=== PATIENT | female | born 1990 | race Caucasian/White ===

== ENCOUNTER 2018-12-22 11:08 | Emergency (ER) | payer MEDICAID ==
[2018-12-22 11:32] VITALS: BP 139/87; PULSE 98
[2018-12-22] MEDS ORDERED: oxyCODONE 5 MG Tab PO ONE ×2 (12:36→16:09)
--- NOTE | 2018-12-22 13:10 | EDM.PDOC ---
ED HPI GENERAL MEDICAL PROBLEM - General Chief Complaint: Abdominal Pain Stated Complaint: right lower abd pain Time Seen by Provider: 12/22/18 12:25 Source of Information: Reports: Patient History Limitations: Reports: No Limitations - History of Present Illness INITIAL COMMENTS - FREE TEXT/NARRATIVE: 28-year-old with history of ovarian cysts present with concerns of right-sided pelvic pain. she was getting out of bed this morning when she had the onset of severe, sharp right-sided pelvic pain. It is worse with walking and movement. No associated nausea or vomiting. No fevers. No diarrhea. No vaginal discharge. She reports that this feels similar to when she's had ruptured ovarian cysts in the past. She does have her appendix. right side Pain Score (Numeric/FACES): 5 - Related Data Allergies Allergy/AdvReac Type Severity Reaction Status Date / Time citalopram Allergy Hives Verified 12/22/18 11:32 hydrocodone bitartrate Allergy Rash Verified 12/22/18 11:32 [From Vicodin] Home Meds: Home Meds Albuterol [Proventil HFA] 200 puff INH Q4H PRN 10 Days #1 inhaler 10/12/18 [Rx] Letrozole 2.5 mg PO DAILY 12/22/18 [History] Norethindrone [Aygestin] 5 mg PO DAILY 12/22/18 [History] Past Medical History - Past Health History Medical/Surgical History: Denies Medical/Surgical History Respiratory History: Reports: Other (See Below) Other Respiratory History: dry cough past few months 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: 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 Other PNEUMATIC TOOL OPERATOR History: laparoscopy for endometriosis Musculoskeletal History: Reports: Fracture Other Musculoskeletal History: right hand Neurological History: Reports: Migraines Psychiatric History: Reports: Anxiety, Bipolar, Depression - Past Surgical History Other Female Surgeries/Procedures: endometrosis Social & Family History - Tobacco Use Smoking Status *Q: Current Every Day Smoker Years of Tobacco use: 1 Packs/Tins Daily: 0.5 - Caffeine Use Caffeine Use: Reports: Energy Drinks, Soda - Alcohol Use Days Per Week of Alcohol Use: 2 Number of Drinks Per Day: 4 Total Drinks Per Week: 8 - Recreational Drug Use Recreational Drug Use: No ED ROS GENERAL - Review of Systems Review Of Systems: See Below Constitutional: Reports: No Symptoms HEENT: Reports: No Symptoms Respiratory: Reports: No Symptoms Cardiovascular: Reports: No Symptoms Endocrine: Reports: No Symptoms GI/Abdominal: Reports: Abdominal Pain : Reports: No Symptoms Musculoskeletal: Reports: No Symptoms Skin: Reports: No Symptoms Neurological: Reports: No Symptoms Psychiatric: Reports: No Symptoms Hematologic/Lymphatic: Reports: No Symptoms Immunologic: Reports: No Symptoms ED EXAM, GI/ABD - Physical Exam Exam: See Below Exam Limited By: No Limitations General Appearance: Alert, No Apparent Distress Ears: Normal External Exam Nose: Normal Inspection Throat/Mouth: Normal Inspection Head: Atraumatic, Normocephalic Respiratory/Chest: No Respiratory Distress, Lungs Clear Cardiovascular: Regular Rate, Rhythm GI/Abdominal Exam: Tender (right sided pelvic tenderness to palpation). No: Guarding, Rigid, Rebound Rectal (Female) Exam: Normal Exam Back Exam: Normal Inspection Extremities: Normal Inspection Neurological: Alert, Oriented Psychiatric: Normal Affect, Normal Mood Skin Exam: Warm, Dry Course - Vital Signs Last Recorded V/S: Last Vital Signs Temp 36.1 C 12/22/18 11:31 Pulse 98 12/22/18 11:31 Resp 20 12/22/18 11:31 BP 139/87 12/22/18 11:31 Pulse Ox 96 12/22/18 11:31 - Orders/Labs/Meds Orders: Active Orders 24 hr Category Date Time Status Iopamidol [Isovue-300 (61%)] Med 12/22/18 14:00 Active 100 ml IV . DIRECTED PRN Sodium Chloride 0.9% [Normal Saline] 100 ml Med 12/22/18 14:00 Active IV ASDIRECTED Medication Orders Sodium Chloride (Normal Saline) 100 mls @ 3 mls/sec IV ASDIRECTED EDWINA Stop: 12/22/18 17:00 Last Admin: 12/22/18 14:46 Dose: 3 mls/sec Iopamidol (Isovue-300 (61%)) 100 ml IV . DIRECTED PRN PRN Reason: RADIOLOGY EXAM Stop: 12/23/18 14:01 Last Admin: 12/22/18 14:46 Dose: 100 ml Labs: Laboratory Tests 12/22/18 12/22/18 12/22/18 Range/Units 11:46 12:35 13:50 WBC 10.8 (4.5-11.0) K/uL RBC 4.42 (3.30-5.50) M/uL Hgb 13.8 (12.0-15.0) g/dL Hct 41.6 (36.0-48.0) % MCV 94 (80-98) fL MCH 31 (27-31) pg MCHC 33 (32-36) % Plt Count 315 (150-400) K/uL Sodium (140-148) mmol/L Potassium (3.6-5.2) mmol/L Chloride (100-108) mmol/L Carbon Dioxide (21-32) mmol/L Anion Gap (5.0-14.0) mmol/L BUN (7-18) mg/dL Creatinine (0.6-1.0) mg/dL Est Cr Clr Drug Dosing mL/min Estimated GFR (MDRD) (>60) Glucose (74-106) mg/dL Calcium (8.5-10.1) mg/dL Total Bilirubin (0.2-1.0) mg/dL AST (15-37) U/L ALT (12-78) U/L Alkaline Phosphatase (46-116) U/L Total Protein (6.4-8.2) g/dL Albumin (3.4-5.0) g/dL Globulin (2.3-3.5) g/dL Albumin/Globulin Ratio (1.2-2.2) Lipase (73-393) U/L Urine Color Yellow (YELLOW) Urine Appearance Slightly cloudy A (CLEAR) Urine pH 6.0 (5.0-8.0) Ur Specific [place] 1.025 (1.008-1.030) Urine Protein Negative (NEGATIVE) mg/dL Urine Glucose (UA) Negative (NEGATIVE) mg/dL Urine Ketones Negative (NEGATIVE) mg/dL Urine Occult Blood Negative (NEGATIVE) Urine Nitrite Negative (NEGATIVE) Urine Bilirubin Negative (NEGATIVE) Urine Urobilinogen 0.2 (0.2-1.0) EU/dL Ur Leukocyte Esterase Negative (NEGATIVE) Urine RBC Not seen (0-5) Urine WBC Not seen (0-5) Ur Epithelial Cells Rare Amorphous Sediment Rare Urine Bacteria Not seen Urine Mucus Moderate Urine HCG, Qual Negative 12/22/18 12/22/18 Range/Units 13:50 14:05 WBC (4.5-11.0) K/uL RBC (3.30-5.50) M/uL Hgb (12.0-15.0) g/dL Hct (36.0-48.0) % MCV (80-98) fL MCH (27-31) pg MCHC (32-36) % Plt Count (150-400) K/uL Sodium 139 L (140-148) mmol/L Potassium 3.9 (3.6-5.2) mmol/L Chloride 103 (100-108) mmol/L Carbon Dioxide 28 (21-32) mmol/L Anion Gap 11.9 (5.0-14.0) mmol/L BUN 13 (7-18) mg/dL Creatinine 0.7 (0.6-1.0) mg/dL Est Cr Clr Drug Dosing 93.79 mL/min Estimated GFR (MDRD) > 60 (>60) Glucose 75 (74-106) mg/dL Calcium 9.0 (8.5-10.1) mg/dL Total Bilirubin 0.2 (0.2-1.0) mg/dL AST 15 (15-37) U/L ALT 24 (12-78) U/L Alkaline Phosphatase 38 L (46-116) U/L Total Protein 6.9 (6.4-8.2) g/dL Albumin 3.7 (3.4-5.0) g/dL Globulin 3.2 (2.3-3.5) g/dL Albumin/Globulin Ratio 1.2 (1.2-2.2) Lipase 287 (73-393) U/L Urine Color (YELLOW) Urine Appearance (CLEAR) Urine pH (5.0-8.0) Ur Specific [place] (1.008-1.030) Urine Protein (NEGATIVE) mg/dL Urine Glucose (UA) (NEGATIVE) mg/dL Urine Ketones (NEGATIVE) mg/dL Urine Occult Blood (NEGATIVE) Urine Nitrite (NEGATIVE) Urine Bilirubin (NEGATIVE) Urine Urobilinogen (0.2-1.0) EU/dL Ur Leukocyte Esterase (NEGATIVE) Urine RBC (0-5) Urine WBC (0-5) Ur Epithelial Cells Amorphous Sediment Urine Bacteria Urine Mucus Urine HCG, Qual Meds: Medications Generic Name Dose Route Start Last Admin Trade Name Freq PRN Reason Stop Dose Admin Sodium Chloride 100 mls @ 3 mls/sec 12/22/18 14:00 12/22/18 14:46 Normal Saline IV 12/22/18 17:00 3 mls/sec ASDIRECTED EDWINA Administration Iopamidol 100 ml 12/22/18 14:00 12/22/18 14:46 Isovue-300 (61%) IV 12/23/18 14:01 100 ml . DIRECTED PRN Administration RADIOLOGY EXAM Discontinued Medications Generic Name Dose Route Start Last Admin Trade Name Nay PRN Reason Stop Dose Admin Oxycodone HCl 5 mg 12/22/18 12:36 12/22/18 12:42 Oxycodone PO 12/22/18 12:37 5 mg ONETIME ONE Administration Sodium Chloride 10 ml 12/22/18 14:00 12/22/18 14:02 Normal Saline FLUSH 12/22/18 14:01 10 ml ONETIME ONE Administration - Re-Assessments/Exams Free Text/Narrative Re-Assessment/Exam: 48-year-old with history of ovarian cysts presents with concerns of sharp right- sided pelvic pain that started abruptly this morning. Reports feels similar to prior ovarian cysts. On exam she has normal vital signs. She does have right-sided pelvic tenderness. We will get a pelvic ultrasound to further evaluate for cyst rupture, rule out torsion. If unremarkable will expand differential as needed. 12/22/18 13:09 Free Text/Narrative Re-Assessment/Exam: US report by tech as unremarkable. Patient with continued pain. Obtained labs - unremarkable Proceeded with CT abd/pelvis: show pelvic free fluid and findings consistent with likely ruptured cyst. Also possible leiomyoma - call follow this up with PCP Safe for discharge - NSAIDS for pain 12/22/18 16:02 Departure - Departure Time of Disposition: 16:05 Disposition: Home, Self-Care 01 Clinical Impression: Ruptured ovarian cyst - Discharge Information *PRESCRIPTION DRUG MONITORING PROGRAM REVIEWED*: No *COPY OF PRESCRIPTION DRUG MONITORING REPORT IN PATIENT ESTUARDO: No Referrals: Ophelia Aguilar CNM [Primary Care Provider] - Forms: ED Department Discharge Additional Instructions: You CT findings are consistent with likely ruptured ovarian cyst They also showed possible fibroids - please follow up with you PCP regarding this Take tylenol and ibuprofen for pain. - My Orders Last 24 Hours: My Active Orders 12/22/18 14:00 Iopamidol [Isovue-300 (61%)] 100 ml IV . DIRECTED PRN Sodium Chloride 0.9% [Normal Saline] 100 ml IV ASDIRECTED - Assessment/Plan Last 24 Hours: My Active Orders 12/22/18 14:00 Iopamidol [Isovue-300 (61%)] 100 ml IV . DIRECTED PRN Sodium Chloride 0.9% [Normal Saline] 100 ml IV ASDIRECTED
[2018-12-22] MEDS ORDERED: Sodium Chloride 0.9% 100 ML IV SCH (14:00)
[2018-12-22] MEDS ORDERED: Sodium Chloride 0.9% 10 ML SDV FLUSH ONE (14:00)
[2018-12-22] MEDS ORDERED: Iopamidol 612 MG/ML 100 ML Bottle IV PRN (14:00)
--- NOTE | 2018-12-22 16:00 | CT ---
Abdomen Pelvis w Cont: 12/22/2018 2:37 PM INDICATION: RLQ abdominal pain COMPARISON: CT of the abdomen and pelvis performed on 01/08/2014, contemporaneous pelvic ultrasound. TECHNIQUE: Axial images were obtained through the abdomen and pelvis after administration of intravenous contrast. Coronal and sagittal reformats were obtained and reviewed. FINDINGS: Lower thorax: Visualized portions are within normal limits. Liver: Unremarkable. Gallbladder/biliary: Unremarkable. Spleen: Unremarkable. Adrenal glands: Unremarkable. Kidneys: Unremarkable. Stomach: Unremarkable. Duodenum and small bowel: Unremarkable. No findings to suggest obstruction.. Colon: Unremarkable. Appendix: Unremarkable. Pancreas: Unremarkable. Vascular structures: Unremarkable.. Peritoneum: Small amount of free pelvic fluid. No pneumoperitoneum. No pathologically enlarged intra-abdominal lymph nodes. Retroperitoneum: Unremarkable. No pathologically enlarged retroperitoneal lymph nodes. Reproductive structures: Heterogeneous appearance of the uterus, particularly involving the left lateral aspect of the fundus and body of the uterus which relate to leiomyomatous change. Involuting corpus luteum cyst is present in the right ovary. Left ovarian follicles are present. Small amount of free fluid extends into the left adnexal region and posterior cul-de-sac. Endometrial stripe appears somewhat thickened. Urinary bladder: Unremarkable but incompletely distended. Pelvic sidewall: Unremarkable. No lymphadenopathy. Inguinal regions: Unremarkable. Osseous structures: Unremarkable. No acute osseous abnormalities or aggressive osseous lesions. IMPRESSION: 1. Heterogeneous appearance of the uterus is nonspecific may relate to leiomyomatous change or focal adenomyosis. This could be further assessed with pelvic MRI if indicated. 2. Involuting right-sided corpus luteum cyst and left-sided ovarian follicle/functional ovarian cyst. Small amount of free pelvic fluid likely relates to recent cyst rupture. 3. Other ancillary findings as detailed above.
--- NOTE | 2018-12-22 16:04 | US ---
VL Duplex Abd Pel Ret Ltd, Pelvis Non OB Comp: 12/22/2018 1:24 PM INDICATION: Right-sided pelvic pain COMPARISON: Ultrasound performed on 06/13/2015, contemporaneous pelvic CT. TECHNIQUE: Grayscale and Doppler sonography of the pelvis was performed utilizing both transabdominal and transvaginal approach. FINDINGS: Uterus measures 7.7 x 4.5 x 3.6 cm. Endometrial stripe measures 6 mm. Mildly heterogeneous uterine echotexture without discrete mass. The right ovary contains a small involuting corpus luteum cyst. Right ovary measures 3.4 x 2.4 x 2.0 cm. The left ovary measures 2.7 x 1.7 x 2.0 cm and contains several small follicles measuring up to 1.1 cm. Small amount of free pelvic fluid is seen in the posterior cul-de-sac and left adnexal region. Vascular flow to both ovaries is identified on Doppler analysis. IMPRESSION: 1. Mildly heterogeneous uterine echotexture is nonspecific but can be seen in the setting of adenomyosis. 2. Small right-sided corpus luteum cyst. 3. Small left sided ovarian follicles. 4. Small amount of free pelvic fluid, nonspecific but likely physiologic.
== END 2018-12-22 16:22 | disposition home or self-care (01) ==
LOC: JP.ED 11:08
DX: N83.201 Unspecified ovarian cyst, right side (principal); F31.9 Bipolar disorder, unspecified; F41.9 Anxiety disorder, unspecified; F17.210 Nicotine dependence, cigarettes, uncomplicated; Z88.8 Allergy status to other drugs, medicaments and biological substances; Z79.899 Other long term (current) drug therapy
CPT/HCPCS: 36415; 74177; 76856; 80053; 81001; 81025; 83690; 85027; 93976; 99284; A9270; J7030; Q9967

== ENCOUNTER 2019-03-30 11:43 | Emergency (ER) | payer MEDICAID, OTHER ==
[2019-03-30 11:55] VITALS: BP 138/95; PULSE 83
[2019-03-30] MEDS ORDERED: Acetaminophen/HYDROcodone 325-5 MG Tab PO ONE (12:20)
--- NOTE | 2019-03-30 12:24 | EDM.PDOC ---
ED HPI GENERAL MEDICAL PROBLEM - General Chief Complaint: Headache Stated Complaint: FALL, HIT HEAD AND ELBOW Time Seen by Provider: 03/30/19 12:17 Source of Information: Reports: Patient, RN Notes Reviewed History Limitations: Reports: No Limitations - History of Present Illness INITIAL COMMENTS - FREE TEXT/NARRATIVE: 29-year-old female presents emergency department today complaint of left elbow pain as well as head injury, she was on her way to work when she slipped on the ice landed on her elbow also hit her head she had 1 episode of emesis headache has improved but the pain in her elbow persists. States she does have a history of hydrocodone allergy which causes a rash however she is able to take 1 or 2 tablets without any difficulty Left Elbow Pain Score (Numeric/FACES): 7 Head Pain Score (Numeric/FACES): 5 - Related Data Allergies Allergy/AdvReac Type Severity Reaction Status Date / Time citalopram Allergy Hives Verified 03/30/19 11:56 hydrocodone bitartrate Allergy Rash Verified 03/30/19 11:56 [From Vicodin] Home Meds: Home Meds NK [No Known Home Meds] 03/30/19 [History] Past Medical History Respiratory History: Reports: Other (See Below) Other Respiratory History: dry cough past few months 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: 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 WEATHERIZATION DIRECTOR History: laparoscopy for endometriosis Musculoskeletal History: Reports: Fracture Other Musculoskeletal History: right hand Neurological History: Reports: Migraines Psychiatric History: Reports: Anxiety, Bipolar, Depression - Past Surgical History Other Female Surgeries/Procedures: endometrosis Social & Family History - Tobacco Use Smoking Status *Q: Current Every Day Smoker Years of Tobacco use: 2 Packs/Tins Daily: 0.5 - Caffeine Use Caffeine Use: Reports: Coffee - Recreational Drug Use Recreational Drug Use: No Review of Systems - Review of Systems Review Of Systems: See Below Constitutional: Reports: No Symptoms Eyes: Reports: No Symptoms GI/Abdominal: Reports: Nausea Musculoskeletal: Reports: Arm Pain Skin: Reports: No Symptoms Neurological: Reports: No Symptoms ED EXAM, GENERAL - Physical Exam Exam: See Below Free Text/Narrative:: Examination of the elbow she is tender to palpitation along the lateral olecranon, I do not appreciate any erythema there is no edema there is no tenderness at the wrist no tenderness at the shoulder full range of motion of all digits sensation is intact and radial pulses +2 Exam Limited By: No Limitations General Appearance: Alert, WD/WN, No Apparent Distress Eye Exam: Bilateral Eye: EOMI, Normal Inspection, PERRL Ears: Normal External Exam, Normal Canal, Hearing Grossly Normal, Normal TMs Nose: Normal Inspection, Normal Mucosa, No Blood Throat/Mouth: Normal Inspection Head: Atraumatic, Normocephalic Neck: Normal Inspection, Supple, Full Range of Motion, Tender Lateral. No: Tender Midline Respiratory/Chest: No Respiratory Distress Course - Vital Signs Last Recorded V/S: Last Vital Signs Temp 96.5 F L 03/30/19 11:52 Pulse 83 03/30/19 11:52 Resp 16 03/30/19 11:52 BP 138/95 H 03/30/19 11:52 Pulse Ox - Orders/Labs/Meds Meds: Medications Discontinued Medications Generic Name Dose Route Start Last Admin Trade Name Freq PRN Reason Stop Dose Admin Hydrocodone Bitart/Acetaminophen 1 tab 03/30/19 12:20 03/30/19 12:28 [place] 325-5 Mg PO 03/30/19 12:21 1 tab ONETIME ONE Administration Departure - Departure Time of Disposition: 13:42 Disposition: Home, Self-Care 01 Condition: Fair Clinical Impression: Left elbow contusion Qualifiers: Encounter type: initial encounter Qualified Code(s): S50.02XA - Contusion of left elbow, initial encounter Head injury Qualifiers: Encounter type: initial encounter Qualified Code(s): S09.90XA - Unspecified injury of head, initial encounter - Discharge Information Instructions: Head Injury, Adult, [id number], Contusion, [id number] Referrals: Ophelia Aguilar CNM [Primary Care Provider] - Forms: ED Department Discharge Additional Instructions: Use ibuprofen for baseline pain control, use hydrocodone for breakthrough pain, please followup with your primary care provider in 3-5 days if not better, please call return to the emergency department with worsening of symptoms. Sepsis Event Note - Evaluation Sepsis Screening Result: No Definite Risk - Focused Exam Vital Signs: Vital Signs Temp Pulse Resp BP 03/30/19 11:52 96.5 F L 83 16 138/95 H Date Exam was Performed: 03/30/19 Time Exam was Performed: 13:41 - Assessment/Plan Plan: Assessment Acuity = acute Site and laterality = left elbow contusion with head injury Etiology = secondary to fall on ice Manifestations = none Location of injury = Home Lab values = elbow x-ray reveals no fracture Plan She had good relief with hydrocodone provided in the emergency department, prescription for written for hydrocodone 5/325 1 tab p.o. 3 times daily PRN total #4 she will use ibuprofen for baseline pain control follow-up primary care 3 to 5 days if not better This note was dictated using [employer] voice recognition software please call with any questions on syntax or grammar.
--- NOTE | 2019-03-30 13:38 | CR ---
Elbow Min 3V Lt CLINICAL HISTORY: Pain, fall FINDINGS: No acute fracture or dislocation is noted. The fat pads are in normal position. Impression: Negative
== END 2019-03-30 13:50 | disposition home or self-care (01) ==
LOC: JP.ED 11:43
DX: S09.90XA Unspecified injury of head, initial encounter (principal); S50.02XA Contusion of left elbow, initial encounter; F17.210 Nicotine dependence, cigarettes, uncomplicated; Z88.8 Allergy status to other drugs, medicaments and biological substances; W00.0XXA Fall on same level due to ice and snow, initial encounter
CPT/HCPCS: 73080; 99283; A9270

== ENCOUNTER 2019-05-22 15:27 | Emergency (ER) | payer MEDICAID, OTHER ==
[2019-05-22 15:46] VITALS: BP 149/116; PULSE 109
--- NOTE | 2019-05-22 16:14 | EDM.PDOC ---
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 Has had cramping that she has been treating with ibuprofen for the past couple of weeks. No dysuria or hx of UTI's. Has not been to the clinic for this . Has been before, but does not have living children. Does not know her blood type. No vaginal bleeding. No lateral pelvic pain. PHx of endometriosis. Did not try to be seen at the clinic. 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 - Related Data Allergies Allergy/AdvReac Type Severity Reaction Status Date / Time citalopram Allergy Hives Verified 05/22/19 15:45 hydrocodone bitartrate Allergy Rash Verified 05/22/19 15:45 [From Vicodin] Home Meds: Home Meds NK [No Known Home Meds] 03/30/19 [History] Past Medical History Respiratory History: Reports: Other (See Below) Other Respiratory History: dry cough past few months 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: 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 Other PROFESSIONAL ARCHITECT History: laparoscopy for endometriosis Musculoskeletal History: Reports: Fracture Other Musculoskeletal History: right hand Neurological History: Reports: Migraines Psychiatric History: Reports: Anxiety, Bipolar, Depression - Past Surgical History Other Female Surgeries/Procedures: endometrosis Social & Family History - Tobacco Use Smoking Status *Q: Current Every Day Smoker Years of Tobacco use: 1 Packs/Tins Daily: 0.2 - Caffeine Use Caffeine Use: Reports: Coffee ED ROS GENERAL - Review of Systems Review Of Systems: See Below Constitutional: Reports: No Symptoms HEENT: Reports: No Symptoms Respiratory: Reports: No Symptoms Cardiovascular: Reports: No Symptoms Endocrine: Reports: No Symptoms GI/Abdominal: Reports: No Symptoms : Reports: Irregular Menses (missed menses), Pain (cramping), Other (uterine cramping). Denies: Dysuria, Flank Pain, Hematuria, Urinary Retention Musculoskeletal: Reports: No Symptoms Skin: Reports: No Symptoms ED EXAM - Physical Exam Exam: See Below Exam Limited By: No Limitations General Appearance: Alert, WD/WN, No Apparent Distress Respiratory/Chest: No Respiratory Distress Cardiovascular: Regular Rate, Rhythm, No Edema GI/Abdominal Exam: Normal Bowel Sounds, Soft, No Distention, Tender (mild uterine tenderness without adnexal tenderness. ). No: Non-Tender, Distended, Guarding, Rigid, Rebound Extremities: Normal Inspection Neurological: Alert, Oriented, CN II-XII Intact, Normal Cognition, No Motor/ Sensory Deficits Psychiatric: Normal Affect, Normal Mood Skin Exam: Warm, Dry, Intact, Normal Color, No Rash Course - Vital Signs Last Recorded V/S: Last Vital Signs Temp 35.6 C L 05/22/19 15:54 Pulse 109 H 05/22/19 15:54 Resp 18 05/22/19 15:54 BP 149/116 H 05/22/19 15:54 Pulse Ox 96 05/22/19 15:54 - Orders/Labs/Meds Labs: Laboratory Tests 05/22/19 Range/Units 16:08 Urine Color Yellow (YELLOW) Urine Appearance Clear (CLEAR) Urine pH 6.5 (5.0-8.0) Ur Specific [place] >= 1.030 (1.008-1.030) Urine Protein Negative (NEGATIVE) mg/dL Urine Glucose (UA) Negative (NEGATIVE) mg/dL Urine Ketones Negative (NEGATIVE) mg/dL Urine Occult Blood Negative (NEGATIVE) Urine Nitrite Negative (NEGATIVE) Urine Bilirubin Negative (NEGATIVE) Urine Urobilinogen 0.2 (0.2-1.0) EU/dL Ur Leukocyte Esterase Negative (NEGATIVE) Urine RBC 0-5 (0-5) Urine WBC 0-5 (0-5) Ur Epithelial Cells Many Amorphous Sediment Few Urine Bacteria Few Urine Mucus Not seen Departure - Departure Time of Disposition: 16:22 Disposition: Home, Self-Care 01 Condition: Fair Clinical Impression: Uterine cramping - Discharge Information *PRESCRIPTION DRUG MONITORING PROGRAM REVIEWED*: No *COPY OF PRESCRIPTION DRUG MONITORING REPORT IN PATIENT ESTUARDO: No Instructions: Pelvic Pain, Female Referrals: Ophelia Aguilar CNM [Primary Care Provider] - Forms: ED Department Discharge Additional Instructions: Acetaminophen up to 1000 mg every 6 hrs as needed for pain relief. Drink enough fluids so that your urine is very light yellow in color. Recheck if your pain gets worse or you clearly have pain mostly in the left or right pelvis as opposed to directly over your uterus. Recheck with your provider early next week if sx's persist. You may develop vaginal bleeding if your current symptoms are due to an early miscarriage. Sepsis Event Note - Evaluation Sepsis Screening Result: No Definite Risk - Focused Exam Vital Signs: Vital Signs Temp Pulse Resp BP Pulse Ox 05/22/19 15:54 35.6 C L 109 H 18 149/116 H 96 05/22/19 15:45 35.6 C L 109 H 18 149/116 H 96 Date Exam was Performed: 05/22/19 Time Exam was Performed: 16:22
== END 2019-05-22 16:35 | disposition home or self-care (01) ==
LOC: JP.ED 15:27
DX: O99.89 Other specified diseases and conditions complicating pregnancy, childbirth and the puerperium (principal); N94.89 Other specified conditions associated with female genital organs and menstrual cycle; O99.331 Smoking (tobacco) complicating pregnancy, first trimester; F17.210 Nicotine dependence, cigarettes, uncomplicated; Z88.5 Allergy status to narcotic agent; Z88.1 Allergy status to other antibiotic agents; Z3A.01 Less than 8 weeks gestation of pregnancy
CPT/HCPCS: 81001; 99282; 99283

== ENCOUNTER 2019-06-25 20:28 | Emergency (ER) | payer MEDICAID ==
[2019-06-25 20:45] VITALS: BP 122/79; PULSE 96
--- NOTE | 2019-06-25 21:16 | EDM.PDOC ---
ED HPI GENERAL MEDICAL PROBLEM - General Chief Complaint: CLOTH CHECKER Problem Stated Complaint: 10 WKS PG/CRAMPING/NAUSEATED Time Seen by Provider: 06/25/19 20:40 Source of Information: Reports: Patient History Limitations: Reports: No Limitations - History of Present Illness INITIAL COMMENTS - FREE TEXT/NARRATIVE: 29-year-old female who is roughly 10 weeks , has developed some intermittent pelvic cramping especially on the right side, and a sensation of drainage but she has not seen any actual bleeding or fluid. She also has a mild headache and general malaise and nausea, no fevers or chills, cough shortness of breath or vomiting. She is 2 para 0 with 1 spontaneous miscarriage. Onset: Gradual (Came on over the course of today, the last 10 hours) Associated Symptoms: Reports: Headaches, Malaise, Other (Intermittent right lower quadrant and suprapubic abdominal cramping). Denies: Fever/Chills, Weakness RLQ Pain Score (Numeric/FACES): 4 - Related Data Allergies Allergy/AdvReac Type Severity Reaction Status Date / Time citalopram Allergy Hives Verified 06/25/19 20:51 hydrocodone bitartrate Allergy Rash Verified 06/25/19 20:51 [From Vicodin] Home Meds: Home Meds Pnv No.95/Ferrous Fum/Folic AC [ Vitamins Tablet] 1 tab PO DAILY [History] Progesterone, Micronized [Progesterone] 1 tab PO BID 06/25/19 [History] Past Medical History Respiratory History: Reports: Other (See Below) Other Respiratory History: dry cough past few months CLOTH CHECKER History: Reports: 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 Other CLOTH CHECKER History: laparoscopy for endometriosis Musculoskeletal History: Reports: Fracture Other Musculoskeletal History: right hand Neurological History: Reports: Migraines Psychiatric History: Reports: Anxiety, Bipolar, Depression - Past Surgical History Other Female Surgeries/Procedures: endometrosis Social & Family History - Tobacco Use Smoking Status *Q: Current Every Day Smoker Years of Tobacco use: 15 Packs/Tins Daily: 0.2 - Caffeine Use Caffeine Use: Reports: Soda - Recreational Drug Use Recreational Drug Use: No ED ROS GENERAL - Review of Systems Review Of Systems: See Below Constitutional: Denies: Fever, Chills HEENT: Reports: No Symptoms Respiratory: Reports: No Symptoms GI/Abdominal: Reports: Abdominal Pain, Nausea. Denies: Vomiting : Reports: No Symptoms Skin: Reports: No Symptoms Neurological: Reports: Dizziness, Headache Psychiatric: Reports: No Symptoms ED EXAM, GENERAL - Physical Exam Exam: See Below Exam Limited By: No Limitations General Appearance: Alert, No Apparent Distress Eye Exam: Bilateral Eye: Normal Inspection (No jaundice) Respiratory/Chest: No Respiratory Distress, Lungs Clear Cardiovascular: Regular Rate, Rhythm GI/Abdominal: Normal Bowel Sounds, Soft, Tender (Some vague tenderness across the lower abdomen into the right lower quadrant but no focal guarding) Extremities: No: Pedal Edema Neurological: Alert, Oriented Psychiatric: Normal Affect, Normal Mood Course - Vital Signs Last Recorded V/S: Last Vital Signs Temp 96.4 F L 06/25/19 20:55 Pulse 96 06/25/19 20:55 Resp 16 06/25/19 20:55 BP 122/79 06/25/19 20:55 Pulse Ox 97 06/25/19 20:55 - Orders/Labs/Meds Orders: Active Orders 24 hr Category Date Time Status CULTURE URINE [RM] Stat Lab 06/25/19 21:38 Received Labs: Laboratory Tests 06/25/19 Range/Units 20:50 Urine Color Yellow (YELLOW) Urine Appearance Slightly cloudy A (CLEAR) Urine pH 6.0 (5.0-8.0) Ur Specific [place] >= 1.030 (1.008-1.030) Urine Protein Negative (NEGATIVE) mg/dL Urine Glucose (UA) Negative (NEGATIVE) mg/dL Urine Ketones Negative (NEGATIVE) mg/dL Urine Occult Blood Negative (NEGATIVE) Urine Nitrite Negative (NEGATIVE) Urine Bilirubin Negative (NEGATIVE) Urine Urobilinogen 0.2 (0.2-1.0) EU/dL Ur Leukocyte Esterase Negative (NEGATIVE) Urine RBC 0-5 (0-5) Urine WBC 0-5 (0-5) Ur Epithelial Cells Rare Amorphous Sediment Not seen Urine Bacteria Many Urine Mucus Many - Re-Assessments/Exams Free Text/Narrative Re-Assessment/Exam: 06/25/19 21:17 A UA was obtained. A bedside ultrasound was performed and showed a normal- appearing intrauterine with adequate amniotic fluid and a closed cervix. Good heart tones were seen. UA is still pending. 06/25/19 21:36 UA showed many bacteria but there is no inflammatory response, nitrite negative , no WBCs so it is likely contamination. A culture will be initiated but I would expect mixed chanell. Specific gravity is high so encouraged her to stay hydrated. She can return if worsening or concerns. We will be in touch with her if the urine culture grows anything that needs treatment. Departure - Departure Time of Disposition: 21:40 Disposition: Home, Self-Care 01 Clinical Impression: Pelvic cramping, Dehydration, mild - Discharge Information Instructions: Rehydration, Adult Referrals: Ophelia Aguilar CNM [Primary Care Provider] - Forms: ED Department Discharge Care Plan Goals: Stay hydrated with frequent water intake, rest tomorrow, and increase activity as tolerated. Return if worsening especially if you develop increased pain, fever, or vaginal bleeding. Sepsis Event Note - Evaluation Sepsis Screening Result: No Definite Risk - Focused Exam Vital Signs: Vital Signs Temp Pulse Resp BP Pulse Ox 06/25/19 20:55 96.4 F L 96 16 122/79 97 06/25/19 20:44 96.4 F L 96 16 122/79 97 Date Exam was Performed: 06/25/19 Time Exam was Performed: 22:33 - My Orders Last 24 Hours: My Active Orders 06/25/19 21:38 CULTURE URINE [RM] Stat - Assessment/Plan Last 24 Hours: My Active Orders 06/25/19 21:38 CULTURE URINE [RM] Stat
== END 2019-06-25 21:42 | disposition home or self-care (01) ==
LOC: JP.ED 20:28
DX: O99.89 Other specified diseases and conditions complicating pregnancy, childbirth and the puerperium (principal); R10.2 Pelvic and perineal pain; O99.281 Endocrine, nutritional and metabolic diseases complicating pregnancy, first trimester; E86.0 Dehydration; O99.331 Smoking (tobacco) complicating pregnancy, first trimester; F17.210 Nicotine dependence, cigarettes, uncomplicated; Z88.8 Allergy status to other drugs, medicaments and biological substances; Z88.5 Allergy status to narcotic agent; Z3A.10 10 weeks gestation of pregnancy
CPT/HCPCS: 81001; 87086; 99283; 99284

== ENCOUNTER 2019-07-04 08:53 | Emergency (ER) | payer MEDICAID | END 2019-07-04 09:55 | disposition left against medical advice (07) | LOC: JP.ED 08:53 | DX: Z53.21 Procedure and treatment not carried out due to patient leaving prior to being seen by health care provider (principal) ==

== ENCOUNTER 2019-07-16 20:04 | Emergency (ER) | payer MEDICAID ==
--- NOTE | 2019-07-16 21:28 | EDM.PDOC ---
ED HPI GENERAL MEDICAL PROBLEM - General Chief Complaint: MEDICAL RECORDS SECRETARY Problem Stated Complaint: BLEEDING/13 WEEKS PG Time Seen by Provider: 07/16/19 21:25 Source of Information: Reports: Patient History Limitations: Reports: No Limitations - History of Present Illness INITIAL COMMENTS - FREE TEXT/NARRATIVE: pt is in her second preg at 13 weeks. She is not having cramping but she is spotting. Pt at a miscarriage with her first preg at 8 weeks. Onset: Today, Sudden Duration: Hour(s): Associated Symptoms: Reports: No Other Symptoms Lower Abdominal Pain Score (Numeric/FACES): 1 - Related Data Allergies Allergy/AdvReac Type Severity Reaction Status Date / Time citalopram Allergy Hives Verified 07/16/19 20:50 hydrocodone bitartrate Allergy Rash Verified 07/16/19 20:50 [From Vicodin] Home Meds: Home Meds Pnv No.95/Ferrous Fum/Folic AC [ Vitamins Tablet] 1 tab PO DAILY [History] Progesterone, Micronized [Progesterone] 1 tab PO BID 06/25/19 [History] Past Medical History HEENT History: Reports: Impaired Vision Respiratory History: Reports: Other (See Below) Other Respiratory History: dry cough past few months 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 History: Reports: 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, , Spontaneous Other MEDICAL RECORDS SECRETARY History: laparoscopy for endometriosis Musculoskeletal History: Reports: Fracture Other Musculoskeletal History: right hand Neurological History: Reports: Migraines Psychiatric History: Reports: Anxiety, Bipolar, Depression - Past Surgical History Other Female Surgeries/Procedures: endometrosis Social & Family History - Tobacco Use Smoking Status *Q: Current Every Day Smoker Years of Tobacco use: 15 Packs/Tins Daily: 0.2 - Caffeine Use Caffeine Use: Reports: Soda - Recreational Drug Use Recreational Drug Use: No ED ROS GENERAL - Review of Systems Review Of Systems: See Below Constitutional: Reports: No Symptoms HEENT: Reports: No Symptoms Respiratory: Reports: No Symptoms Cardiovascular: Reports: No Symptoms Endocrine: Reports: No Symptoms GI/Abdominal: Reports: No Symptoms : Reports: Other (vag spotting at 13 weeks preg. ) Musculoskeletal: Reports: No Symptoms ED EXAM, GI/ABD - Physical Exam Exam: See Below Text/Narrative:: pt arrived because she is having spotting at 13 weeks. She did have a miscarriage at 8 weeks with her first preg. Exam Limited By: No Limitations General Appearance: Alert, Anxious, Other (pupils) Ears: Normal TMs Nose: Normal Inspection Throat/Mouth: Normal Inspection Head: Atraumatic Neck: Normal Inspection Respiratory/Chest: No Respiratory Distress Cardiovascular: Regular Rate, Rhythm GI/Abdominal Exam: Soft, Non-Tender (Female) Exam: Heart Tones (fht at 146) Rectal (Female) Exam: Deferred Back Exam: Normal Inspection Extremities: Normal Inspection Neurological: Alert, Oriented, Normal Cognition Course - Vital Signs Last Recorded V/S: Last Vital Signs Temp 36.2 C 07/16/19 20:52 Pulse 88 07/16/19 22:10 Resp 14 07/16/19 20:52 BP 116/74 07/16/19 22:10 Pulse Ox 99 07/16/19 22:10 - Orders/Labs/Meds Labs: Laboratory Tests 07/16/19 07/16/19 07/16/19 Range/Units 21:10 21:10 21:13 WBC 11.1 H (4.5-11.0) K/uL RBC 3.63 (3.30-5.50) M/uL Hgb 11.4 L D (12.0-15.0) g/dL Hct 34.2 L (36.0-48.0) % MCV 94 (80-98) fL MCH 31 (27-31) pg MCHC 33 (32-36) % Plt Count 287 (150-400) K/uL Neut % (Auto) 76 H (36-66) % Lymph % (Auto) 16 L (24-44) % [place] % (Auto) 6 (2-6) % Eos % (Auto) 2 (2-4) % Baso % (Auto) 0 (0-1) % Sodium 139 L (140-148) mmol/L Potassium 3.6 (3.6-5.2) mmol/L Chloride 105 (100-108) mmol/L Carbon Dioxide 26 (21-32) mmol/L Anion Gap 11.6 (5.0-14.0) mmol/L BUN 6 L D (7-18) mg/dL Creatinine 0.5 L (0.6-1.0) mg/dL Est Cr Clr Drug Dosing 124.15 mL/min Estimated GFR (MDRD) > 60 (>60) Glucose 79 (74-106) mg/dL Calcium 8.6 (8.5-10.1) mg/dL Total Bilirubin 0.2 (0.2-1.0) mg/dL AST 12 L (15-37) U/L ALT 21 (12-78) U/L Alkaline Phosphatase 29 L (46-116) U/L Total Protein 6.5 (6.4-8.2) g/dL Albumin 3.2 L (3.4-5.0) g/dL Globulin 3.3 (2.3-3.5) g/dL Albumin/Globulin Ratio 1.0 L (1.2-2.2) Urine Color Yellow (YELLOW) Urine Appearance Clear (CLEAR) Urine pH 6.5 (5.0-8.0) Ur Specific [place] 1.010 (1.008-1.030) Urine Protein Negative (NEGATIVE) mg/dL Urine Glucose (UA) Negative (NEGATIVE) mg/dL Urine Ketones Negative (NEGATIVE) mg/dL Urine Occult Blood Moderate H (NEGATIVE) Urine Nitrite Negative (NEGATIVE) Urine Bilirubin Negative (NEGATIVE) Urine Urobilinogen 0.2 (0.2-1.0) EU/dL Ur Leukocyte Esterase Negative (NEGATIVE) Urine RBC Not seen (0-5) Urine WBC Not seen (0-5) Ur Epithelial Cells Not seen Urine Bacteria Not seen - Re-Assessments/Exams Free Text/Narrative Re-Assessment/Exam: 07/17/19 18:56 pt had good heart tones. Her US looks good with good activity. Her placenta is not real low. Departure - Departure Time of Disposition: 22:14 Disposition: Home, Self-Care 01 Condition: Fair Clinical Impression: 13 weeks gestation of , Vaginal spotting - Discharge Information Instructions: Abdominal Pain During , [id number], Vaginal Bleeding During , Second Trimester, [id number], First Trimester of Referrals: Ophelia Aguilar CNM [Primary Care Provider] - Forms: ED Department Discharge Care Plan Goals: push fluids, appointment with Ophelia Aguilar tomorrow. return if any heavy bleeding. Sepsis Event Note - Evaluation Sepsis Screening Result: No Definite Risk - Focused Exam Date Exam was Performed: 07/17/19 Time Exam was Performed: 18:53
[2019-07-16 22:11] VITALS: BP 116/74; PULSE 88
--- NOTE | 2019-07-16 22:54 | CRLUS ---
INDICATION: Spotting. OBSTETRICAL ULTRASOUND Comparison: 05/25/2019 ultrasound. Findings: Transabdominal sonographic images were performed. The uterus again contains a gestational sac. The gestational sac contains a single fetus which exhibits cardiac activity with a heart rate of 143 BPM. The crown-rump length corresponds to an estimated menstrual age of 13 weeks 4 days and an MIKE of 01/17/2020. This shows satisfactory interval growth compared to the prior exam. The placenta is posterior in position. Maternal ovaries were not visualized. No free pelvic fluid is seen. IMPRESSION: Live early intrauterine with estimated menstrual age of 13 weeks 4 days and MIKE of 01/17/2020. Appropriate interval growth since the prior exam. No acute abnormalities are demonstrated. MIGDALIA BRYSON MD [facility] Dictated by Mukul Bryson MD @ 07/16/2019 10:50:32 PM Dictated by: Mukul Bryson MD @ 07/16/2019 22:52:28 (Electronically Signed)
== END 2019-07-16 22:28 | disposition home or self-care (01) ==
LOC: JP.ED 20:04
DX: O20.9 Hemorrhage in early pregnancy, unspecified (principal); O99.331 Smoking (tobacco) complicating pregnancy, first trimester; F17.210 Nicotine dependence, cigarettes, uncomplicated; Z88.8 Allergy status to other drugs, medicaments and biological substances; Z88.5 Allergy status to narcotic agent; Z3A.13 13 weeks gestation of pregnancy
CPT/HCPCS: 36415; 76801; 80053; 81001; 85025; 99284-25

== ENCOUNTER 2020-01-13 14:54 | Observation (INO) | payer MEDICAID ==
[2020-01-14] MEDS ORDERED: Acetaminophen 325 MG Tab PO PRN (07:34)
[2020-01-14] MEDS ORDERED: Sodium Chloride 0.9% 10 ML Syringe FLUSH PRN (07:34)
[2020-01-14] MEDS ORDERED: Ondansetron 4 MG/2 ML SDV IV PRN (07:34)
[2020-01-14] MEDS ORDERED: fentaNYL 100 MCG/2 ML SDV IVPUSH PRN (07:34)
[2020-01-14] MEDS ORDERED: Calcium Carbonate 500 MG Tab.Chew PO PRN (07:34)
[2020-01-14] MEDS ORDERED: Misoprostol 50 MCG (1/2 of 100 MCG) Tab VAG ONE (08:00)
[2020-01-14 08:27] VITALS: BP 121/83; PULSE 93
--- NOTE | 2020-01-14 09:33 | CRLUS ---
INDICATION: Induction. COMPARISON: None. TECHNIQUE: Biophysical profile. Real time mckenna scale imaging of the fetus was performed. FINDINGS: Sonographic imaging demonstrates a single living intrauterine gestation. The fetus demonstrates a regular cardiac rate of 132 beats per minute. Fetus has a vertex orientation. The amniotic fluid volume appears normal and there is a four-quadrant fluid volume index measurement of 10.69 cm (2/2). The fetus was active (2/2). The fetus demonstrated normal breathing movements (2/2). There was normal flexion and extension of the trunk and extremities (2/2). IMPRESSION: Normal biophysical profile score of 8 out of 8. Dictated by Carlene London MD @ Jan 14 2020 9:28AM Signed by Dr. Carlene London @ Jan 14 2020 9:32AM
[2020-01-14] MEDS ORDERED: Lactated Ringers 1,000 ML IV ONE (10:30)
[2020-01-14] MEDS ORDERED: Lactated Ringers 500 ML IV ONE (10:30)
--- NOTE | 2020-01-14 10:52 | PCM.LDHP ---
L&D History of Present Illness - General Date of Service: 01/14/20 Admit Problem/Dx: Patient Status Order with Admit Dx/Problem 01/14/20 07:39 Patient Status [ADT] Routine Admission Diagnosis/Problem Admission Diagnosis/Problem Term Source of Information: Patient History Limitations: Reports: No Limitations - History of Present Illness Introduction:: 01/14/20 29 yo is here for elective induction of labor at 39 4/7 weeks. She has had an uncomplicated other than an Anti-E antibody. She is GBS negative, A positive blood type, Hep B/C/HIV/RPR all negative and rubella immune. She has not been lyle much at home. She declines leaking of fluid, abdominal pain. She does note good movement today. 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 History: Reports: 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, , Spontaneous : 2 Para: 0 LMP (Approximate): Other OB/BYN History: laparoscopy for endometriosis Musculoskeletal History: Reports: Fracture Other Musculoskeletal History: right hand Neurological History: Reports: Migraines Psychiatric History: Reports: Anxiety, Bipolar, Depression - Past Surgical History HEENT Surgical History: Reports: None Other Female Surgeries/Procedures: endometrosis Social & Family History - Tobacco Use Tobacco Use Status *Q: Current Every Day Tobacco User Years of Tobacco use: 201 Packs/Tins Daily: 0.5 - Caffeine Use Caffeine Use: Reports: Coffee - Recreational Drug Use Recreational Drug Use: No H&P Review of Systems - Review of Systems: Review Of Systems: See Below General: Reports: No Symptoms HEENT: Reports: No Symptoms Pulmonary: Reports: No Symptoms Cardiovascular: Reports: No Symptoms Gastrointestinal: Reports: No Symptoms Genitourinary: Reports: No Symptoms Musculoskeletal: Reports: No Symptoms Skin: Reports: No Symptoms Psychiatric: Reports: No Symptoms Neurological: Reports: No Symptoms Hematologic/Lymphatic: Reports: No Symptoms Immunologic: Reports: No Symptoms L&D Exam - Exam Exam: See Below - Vital Signs Vital Signs: Last Vital Signs Temp 36.0 C L 01/14/20 07:11 Pulse 93 01/14/20 07:11 Resp 18 01/14/20 07:11 BP 121/83 01/14/20 07:11 Pulse Ox 97 01/14/20 07:11 Weight: 69.4 kg - OB Specific Contraction Frequency (min): x2 Contraction Intensity: Mild Heart Rate (FHR) Variability: Moderate (6-25 bmp) Presentation: Vertex - Joshi Score Joshi Score Cervix Position: Midposition Joshi Score Consistency: Medium Joshi Score Effacement: 51-70% Joshi Score Dilation: Closed Joshi Score 's Station: -2 Joshi Score Total: 5 - Exam General: Alert, Oriented HEENT: PERRLA, Conjunctiva Clear, EOMI, Hearing Intact, Mucosa Moist & [place], Nares Patent, Pupils Equal, Pupils Reactive, TMs Clear Neck: Supple, Trachea Midline Lungs: Clear to Auscultation, Normal Respiratory Effort Cardiovascular: Regular Rate, Regular Rhythm GI/Abdominal Exam: Normal Bowel Sounds, Soft, Non-Tender, No Organomegaly, No Distention, No Abnormal Bruit, No Mass, Pelvis Stable Rectal Exam: Normal Exam, Normal Rectal Tone Genitourinary: Normal external exam, Normal bimanual exam. No: Cervical dilitation, Vaginal bleeding, Vaginal discharge Back Exam: Normal Inspection, Full Range of Motion Extremities: Normal Inspection, Normal Range of Motion, Non-Tender, No Pedal Edema, Normal Capillary Refill Skin: Warm, Dry, Intact Neurological: Cranial Nerves Intact, Reflexes Equal Bilateral Psychiatric: Alert, Normal Affect, Normal Mood - Patient Data Lab Results Last 24 hrs: Laboratory Results - last 24 hr 01/14/20 01/14/20 01/14/20 Range/Units 07:10 08:09 08:09 WBC 11.6 H (4.5-11.0) K/uL RBC 3.81 (3.30-5.50) M/uL Hgb 11.7 L (12.0-15.0) g/dL Hct 35.6 L (36.0-48.0) % MCV 93 (80-98) fL MCH 31 (27-31) pg MCHC 33 (32-36) % Plt Count 320 (150-400) K/uL Neut % (Auto) 78 H (36-66) % Lymph % (Auto) 14 L (24-44) % [place] % (Auto) 6 (2-6) % Eos % (Auto) 1 L (2-4) % Baso % (Auto) 0 (0-1) % Urine Color Yellow (YELLOW) Urine Appearance Slightly cloudy A (CLEAR) Urine pH 6.5 (5.0-8.0) Ur Specific [place] 1.025 (1.008-1.030) Urine Protein Negative (NEGATIVE) mg/dL Urine Glucose (UA) Negative (NEGATIVE) mg/dL Urine Ketones Negative (NEGATIVE) mg/dL Urine Occult Blood Negative (NEGATIVE) Urine Nitrite Negative (NEGATIVE) Urine Bilirubin Negative (NEGATIVE) Urine Urobilinogen 0.2 (0.2-1.0) EU/dL Ur Leukocyte Esterase Negative (NEGATIVE) Urine RBC 0-5 (0-5) Urine WBC 0-5 (0-5) Ur Epithelial Cells Many Amorphous Sediment Few Urine Bacteria Moderate Urine Mucus Many Urine Opiates Screen Negative (NEGATIVE) Ur Oxycodone Screen Negative (NEGATIVE) Urine Methadone Screen Negative (NEGATIVE) Ur Propoxyphene Screen Negative (NEGATIVE) Ur Barbiturates Screen Negative (NEGATIVE) Ur Tricyclics Screen Negative (NEGATIVE) Ur Phencyclidine Scrn Negative (NEGATIVE) Ur Amphetamine Screen Negative (NEGATIVE) U Methamphetamines Scrn Negative (NEGATIVE) Urine MDMA Screen Negative (NEGATIVE) U Benzodiazepines Scrn Negative (NEGATIVE) U Cocaine Metab Screen Negative (NEGATIVE) U Marijuana (THC) Screen Negative (NEGATIVE) Result Diagrams: 01/14/20 07:10 - Problem List (1) Term SNOMED Code(s): 22711567 ICD Code: Z34.90 - ENCNTR FOR SUPRVSN OF NORMAL , UNSP, UNSP TRIMESTER Status: Acute Current Visit: Yes (2) Unfavorable cervix in term SNOMED Code(s): 344618803 ICD Code: O34.40 - MATERNAL CARE FOR OTH ABNLT OF CERVIX, UNSP TRIMESTER Status: Acute Current Visit: Yes (3) Tobacco use affecting , antepartum SNOMED Code(s): 229590492, 301228204, 150814638 ICD Code: O99.330 - SMOKING (TOBACCO) COMPLICATING , UNSP TRIMESTER Status: Acute Current Visit: Yes (4) Antibody E isoimmunization affecting , antepartum SNOMED Code(s): 556249283, 827356046 ICD Code: O36.0990 - MATERNAL CARE FOR OTH RHESUS ISOIMMUN, UNSP TRIMESTER, UNSP Status: Acute Current Visit: Yes Qualifiers: Fetus number: single or unspecified fetus Qualified Code(s): O36.0990 - Maternal care for other rhesus isoimmunization, unspecified trimester, not applicable or unspecified Problem List Initiated/Reviewed/Updated: Yes Orders Last 24hrs: Active Orders 24 hr Category Date Time Status Patient Status [ADT] Routine ADT 01/14/20 07:39 Active Communication Order [RC] ASDIRECTED Care 01/14/20 07:39 Active Heart Tones [RC] PER UNIT ROUTINE Care 01/14/20 07:39 Active Non Stress Test [RC] Click to Edit Care 01/14/20 07:39 Active Notify Provider Vital Signs [RC] PRN Care 01/14/20 07:40 Active Notify Provider [RC] PRN Care 01/14/20 07:39 Active Up ad Layne [RC] ASDIRECTED Care 01/14/20 07:34 Active VTE/DVT Education [RC] Click to Edit Care 01/14/20 07:40 Active Vital Signs [RC] PER UNIT ROUTINE Care 01/14/20 07:39 Active Regular Diet [DIET] Diet 01/14/20 Breakfast Active Acetaminophen [TylenoL] Med 01/14/20 07:34 Active 650 mg PO Q4H PRN Calcium Carbonate [Tums] Med 01/14/20 07:34 Active 1,000 mg PO Q2H PRN Lactated Ringers [Ringers, Lactated] 500 ml Med 01/14/20 10:30 Active IV ONETIME Ondansetron [Zofran] Med 01/14/20 07:34 Active 4 mg IV Q4H PRN Oxytocin/Normal Saline [Pitocin in NS 20 Units/1,000 ML Med 01/14/20 07:45 Active ] 20 unit in 1,000 ml IV ASDIRECTED Sodium Chloride 0.9% [Saline Flush] Med 12/03/20 07:34 Active 10 ml FLUSH ASDIRECTED PRN fentaNYL [Sublimaze] Med 01/14/20 07:34 Active 50 mcg IVPUSH Q1H PRN DVT/VTE Prophylaxis Reflex [OM.PC] Routine Oth 01/14/20 07:34 Ordered Saline Lock Insert [OM.PC] Routine Oth 01/14/20 07:39 Ordered Resuscitation Status Routine Resus Stat 01/14/20 07:34 Ordered Medication Orders Acetaminophen (Tylenol) 650 mg PO Q4H PRN PRN Reason: Pain (Mild 1-3) and fever Calcium Carbonate/Glycine (Tums) 1,000 mg PO Q2H PRN PRN Reason: Indigestion Fentanyl (Sublimaze) 50 mcg IVPUSH Q1H PRN PRN Reason: Pain (moderate 4-6) Oxytocin/Sodium Chloride (Pitocin In Ns 20 Units/1,000 Ml) 20 unit in 1,000 mls @ 2,997 mls/hr IV ASDIRECTED EDWINA; Protocol Lactated Ringer's (Ringers, Lactated) 500 mls @ 500 mls/hr IV ONETIME ONE Stop: 01/14/20 11:29 Last Admin: 01/14/20 10:24 Dose: 500 mls/hr Documented by: AMALIA Ondansetron HCl (Zofran) 4 mg IV Q4H PRN PRN Reason: Nausea/Vomiting Sodium Chloride (Saline Flush) 10 ml FLUSH ASDIRECTED PRN PRN Reason: Keep Vein Open Assessment/Plan Comment:: 01/14/20 Assessment: here for elective induction of labor without ripe cervix 39 4/7 weeks BPP 8/8, non reactive NST this morning but good variability and no decelerations: Total score 8/10 with normal TRUDY. Good movement SVE: closed-fingertip/70/-2 Plan: Cervix is unfavorable and there are no risk factors other than smoking for induction of labor. BPP with NST score is 8/10. Discharge home today, discussed kick counts Saturday BPP with NST at clinic Reschedule induction for next Saturday Return with any concerns prior to then
== END 2020-01-14 12:40 | disposition home or self-care (01) ==
LOC: JP.OB 01-14 06:46
PROVIDERS: ADMIT Advanced Practice Midwife; ATTEND Advanced Practice Midwife
DX: O34.43 Maternal care for other abnormalities of cervix, third trimester (principal); O99.333 Smoking (tobacco) complicating pregnancy, third trimester; O36.0131 Maternal care for anti-D [Rh] antibodies, third trimester, fetus 1; F17.210 Nicotine dependence, cigarettes, uncomplicated; F41.9 Anxiety disorder, unspecified; Z88.5 Allergy status to narcotic agent; Z88.8 Allergy status to other drugs, medicaments and biological substances; Z3A.39 39 weeks gestation of pregnancy
CPT/HCPCS: 36415; 76818; 80305-QW; 81001; 85025; 99211; G0378

== ENCOUNTER 2020-01-19 21:20 | Inpatient (IN) | payer MEDICAID ==
[2020-01-19] MEDS ORDERED: Sodium Chloride 0.9% 10 ML Syringe FLUSH PRN (21:40)
[2020-01-19] MEDS ORDERED: Lactated Ringers 1,000 ML IV ONE (22:35)
[2020-01-19] MEDS ORDERED: Ropivacaine 100 ML ONE (22:42)
--- NOTE | 2020-01-19 22:50 | PCM.LDHP ---
L&D History of Present Illness - General Date of Service: 01/19/20 (active labor) Admit Problem/Dx: Patient Status Order with Admit Dx/Problem 01/19/20 21:41 Patient Status [ADT] Routine Admission Diagnosis/Problem Admission Diagnosis/Problem Active labor Source of Information: Patient History Limitations: Reports: No Limitations - History of Present Illness Introduction:: This 29 year old who is a at 40 2/7 weeks MIKE 01/17/20. presents in active labor. Smoker Neg covid at clinic ABO A pos with anti E HIV neg Rubella immune GBS neg Timing/Duration: Reports: minutes: (2) Location, : Reports: Abdomen Quality: Reports: Pressure, Sharp Severity: Severe Improves with: Reports: Rest Worsens with: Reports: None - Related Data Allergies/Adverse Reactions: Allergies Allergy/AdvReac Type Severity Reaction Status Date / Time citalopram Allergy Hives Verified 01/19/20 10:59 hydrocodone bitartrate Allergy Rash Verified 01/19/20 10:59 [From Vicodin] Home Medications: Home Meds Pnv No.95/Ferrous Fum/Folic AC [ Vitamins Tablet] 1 tab PO DAILY 06/25/19 [History] Past Medical History - Past Health History Medical/Surgical History: Denies Medical/Surgical History HEENT History: Reports: Impaired Vision Respiratory History: Reports: Other (See Below) Other Respiratory History: dry cough past few months 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: Reports: 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, , Spontaneous : 2 Para: 1 LMP (Approximate): (MIKE 01/17/20) Other OB/BYN History: laparoscopy for endometriosis Musculoskeletal History: Reports: Fracture Other Musculoskeletal History: right hand Neurological History: Reports: Migraines Psychiatric History: Reports: Anxiety, Bipolar, Depression - Past Surgical History HEENT Surgical History: Reports: None Other Female Surgeries/Procedures: endometrosis Social & Family History - Caffeine Use Caffeine Use: Reports: Coffee H&P Review of Systems - Review of Systems: Review Of Systems: See Below General: Reports: No Symptoms HEENT: Reports: No Symptoms Pulmonary: Reports: No Symptoms Cardiovascular: Reports: No Symptoms Gastrointestinal: Reports: No Symptoms Genitourinary: Reports: No Symptoms Musculoskeletal: Reports: No Symptoms Skin: Reports: No Symptoms Psychiatric: Reports: No Symptoms Neurological: Reports: No Symptoms Hematologic/Lymphatic: Reports: No Symptoms Immunologic: Reports: No Symptoms L&D Exam - Exam Exam: See Below - OB Specific Contraction Intensity: Strong Movement: Active Heart Tones: Present Heart Tones per Min: 145 Heart Rate (FHR) Variability: Moderate (6-25 bmp) Presentation: Vertex Estimated Weight: 5-6 pounds - Joshi Score Joshi Score Cervix Position: Anterior Joshi Score Consistency: Soft Joshi Score Effacement: >80% Joshi Score Dilation: 3-4 cm Joshi Score Infant's Station: -1 ,0 Joshi Score Total: 11 - Exam General: Alert, Oriented HEENT: PERRLA Neck: Supple Lungs: Normal Respiratory Effort Cardiovascular: Regular Rate GI/Abdominal Exam: Soft, Non-Tender Rectal Exam: Normal Exam Genitourinary: Enlarged uterus, Vaginal discharge Back Exam: Normal Inspection, Full Range of Motion Extremities: No Pedal Edema, Normal Capillary Refill Skin: Warm Neurological: Cranial Nerves Intact Psychiatric: Alert, Normal Affect, Normal Mood - Problem List (1) Active labor SNOMED Code(s): 385963000 ICD Code: FFY3195 - Status: Acute Current Visit: Yes (2) Term SNOMED Code(s): 89049683 ICD Code: Z34.90 - ENCNTR FOR SUPRVSN OF NORMAL , UNSP, UNSP TRIMESTER Status: Acute Current Visit: Yes (3) Tobacco use affecting , antepartum SNOMED Code(s): 631731173, 712095019, 506312900 ICD Code: O99.330 - SMOKING (TOBACCO) COMPLICATING , UNSP TRIMESTER Status: Acute Current Visit: Yes (4) Antibody E isoimmunization affecting , antepartum SNOMED Code(s): 949040937, 194323054 ICD Code: O36.0990 - MATERNAL CARE FOR OTH RHESUS ISOIMMUN, UNSP TRIMESTER, UNSP Status: Acute Current Visit: Yes Qualifiers: Fetus number: single or unspecified fetus Qualified Code(s): O36.0990 - Maternal care for other rhesus isoimmunization, unspecified trimester, not applicable or unspecified Problem List Initiated/Reviewed/Updated: Yes Orders Last 24hrs: Active Orders 24 hr Category Date Time Status Patient Status [ADT] Routine ADT 01/19/20 21:41 Ordered Antiembolic Devices [RC] .Routine Care 01/19/20 21:44 Ordered Communication Order [RC] ASDIRECTED Care 01/19/20 21:41 Ordered Heart Tones [RC] PER UNIT ROUTINE Care 01/19/20 21:41 Ordered Non Stress Test [RC] Click to Edit Care 01/19/20 21:41 Ordered Notify Provider Vital Signs [RC] PRN Care 01/19/20 21:40 Ordered Notify Provider [RC] PRN Care 01/19/20 21:41 Ordered VTE/DVT Education [RC] Click to Edit Care 01/19/20 21:44 Ordered Vital Signs [RC] PER UNIT ROUTINE Care 01/19/20 21:41 Ordered CBC W/O DIFF,HEMOGRAM [HEME] Routine Lab 01/19/20 21:40 Ordered Sodium Chloride 0.9% [Saline Flush] Med 01/19/20 21:40 Ordered 10 ml FLUSH ASDIRECTED PRN DVT/VTE Prophylaxis Reflex [OM.PC] Routine Oth 01/19/20 21:40 Ordered Saline Lock Insert [OM.PC] Routine Oth 01/19/20 21:41 Ordered Resuscitation Status Routine Resus Stat 01/19/20 21:40 Ordered Assessment/Plan Comment:: 01/19/20 active labor at term, 40 2/7 weeks smoker Labs: GBS neg HIV Neg Covid Neg ABO A pos anti E Rubella immune Plan Epidural for pain plan for vaginal delivery
[2020-01-19] MEDS: ePHEDrine 50 MG/ML SDV IVPUSH PRN (23:20)
--- NOTE | 2020-01-19 23:47 | PCM.PNLD ---
Labor Progress Note - VS & Meds Active Medications: Current Medications Ephedrine Sulfate (Ephedrine Sulfate) 10 mg IVPUSH ASDIRECTED PRN PRN Reason: Hypotension Sodium Chloride (Saline Flush) 10 ml FLUSH ASDIRECTED PRN PRN Reason: Keep Vein Open Discontinued Medications Ropivacaine (Naropin 0.2%) Confirm Administered Dose 100 mls @ as directed .ROUTE .STK-MED ONE Stop: 01/19/20 22:43 Last Admin: 01/19/20 23:14 Dose: Not Given Documented by: Lactated Ringer's (Ringers, Lactated) 1,000 mls @ 999 mls/hr IV .BOLUS ONE Stop: 01/19/20 23:35 - Uterine Contractions Contraction Intensity: Strong Uterine Resting Tone: Soft - Monitoring Monitor Mode: Doppler/Auscultation Heart Rate (FHR) Variability: Moderate (6-25 bmp) Accelerations: Present, 15x15 Strip Review: Category II - Vaginal Exam Dilation (cm): 4 Effacement (Percent): 80 Station: 0 Cervical Position: Anterior - Labor Progress (Free Text) Labor Progress: epidural in place and has good pain control Attempted AROM. small amount of fluid contractions have spaced out after epidural will augment with pitocin
[2020-01-20] MEDS: ePHEDrine 50 MG/ML SDV IVPUSH PRN (00:08)
--- NOTE | 2020-01-20 00:13 | ANES ---
DATE OF SERVICE: 01/19/2020 Ms. Cross is a 29-year-old female who is in active labor that I was called to the Labor and Delivery unit by Mariajose Persaud to evaluate her for a labor epidural. She is approximately 3 to 4 cm and in active labor. The risks and benefits of procedure were explained to the patient. She wished to proceed with labor epidural. TECHNIQUE: She was placed in a sitting position. Her back was prepped x3 with Betadine, 1% lidocaine skin local was used. The epidural was placed at L2-L3 using a 17-gauge Tuohy needle in loss of resistance technique. The epidural had very good feel throughout and the epidural space was easily identified. There was negative CSF, negative blood, and negative paresthesias noted. Therefore, catheter was threaded to 14 cm at the skin. There was negative CSF, negative blood, and negative paresthesias noted with the catheter; therefore, a 1.5% lidocaine test dose was given, and this test dose was negative. The catheter was then secured with Tegaderm and tape, and the patient was placed in a supine position. A 0.2% ropivacaine bolus of 12 mL was given. She had very good relief from the bolus, therefore 0.2% ropivacaine drip was started at 12 mL/h. Her vital signs remained stable throughout the procedure and the nurse was with me for the entire procedure. There were no anesthesia complications noted. We will continue to monitor throughout her labor and delivery. Of note, the procedure was done at 2300 on 01/19/2020. Tony Dawson CRNA /[id number]
[2020-01-20] MEDS ORDERED: cefOXitin 2 GM Vial ONE (06:14)
[2020-01-20] MEDS ORDERED: Oxytocin 10 Units/1 ML SDV ONE ×2 (06:14→06:15)
[2020-01-20] MEDS ORDERED: ePHEDrine 50 MG/ML SDV ONE (06:14)
[2020-01-20] MEDS ORDERED: Bupivacaine 0.5% 30 ML SDV ONE (06:14)
[2020-01-20] MEDS ORDERED: cefOXitin 1 GM Vial ONE (06:15)
[2020-01-20] MEDS ORDERED: Morphine PF 10 MG/10 ML SDV ONE (06:53)
[2020-01-20] MEDS ORDERED: Midazolam 1 MG/ML 2 ML SDV ONE (07:03)
[2020-01-20] MEDS ORDERED: Morphine PF 10 MG/10 ML SDV EPIDUR PRN (08:00)
--- NOTE | 2020-01-20 08:19 | PCM.PNLD ---
Labor Progress Note - VS & Meds Vital Signs: Last Vital Signs Temp 36.1 C 01/20/20 08:00 Pulse 90 01/20/20 08:10 Resp 14 01/20/20 08:10 BP 118/81 01/20/20 08:10 Pulse Ox 97 01/20/20 08:10 Active Medications: Current Medications Ephedrine Sulfate (Ephedrine Sulfate) 10 mg IVPUSH ASDIRECTED PRN PRN Reason: Hypotension Last Admin: 01/20/20 00:08 Dose: 10 mg Documented by: Oxytocin/Sodium Chloride (Pitocin In Ns 20 Units/1,000 Ml) 20 unit in 1,000 mls @ 6 mls/hr IV TITRATE EDWINA; Protocol Last Titration: 01/20/20 00:50 Dose: 3 munits/min, 9 mls/hr Documented by: Sodium Chloride (Saline Flush) 10 ml FLUSH ASDIRECTED PRN PRN Reason: Keep Vein Open Discontinued Medications Bupivacaine HCl (Marcaine 0.5%) Confirm Administered Dose 30 ml .ROUTE .STK-MED ONE Stop: 01/20/20 06:15 Cefoxitin Sodium (Mefoxin) Confirm Administered Dose 2 gm .ROUTE .STK-MED ONE Stop: 01/20/20 06:15 Cefoxitin Sodium (Mefoxin) Confirm Administered Dose 1 gm .ROUTE .STK-MED ONE Stop: 01/20/20 06:16 Last Admin: 01/20/20 07:15 Dose: 1 gm Documented by: Ephedrine Sulfate (Ephedrine Sulfate) Confirm Administered Dose 50 mg .ROUTE .STK-MED ONE Stop: 01/20/20 06:15 Ropivacaine (Naropin 0.2%) Confirm Administered Dose 100 mls @ as directed .ROUTE .STK-MED ONE Stop: 01/19/20 22:43 Last Admin: 01/19/20 23:14 Dose: Not Given Documented by: Lactated Ringer's (Ringers, Lactated) 1,000 mls @ 999 mls/hr IV .BOLUS ONE Stop: 01/19/20 23:35 Last Admin: 01/19/20 21:50 Dose: 999 mls/hr Documented by: Midazolam HCl (Versed 1 Mg/Ml) Confirm Administered Dose 2 mg .ROUTE .STK-MED ONE Stop: 01/20/20 07:04 Morphine Sulfate (Duramorph Pf) Confirm Administered Dose 10 mg .ROUTE .STK-MED ONE Stop: 01/20/20 06:54 Oxytocin (Pitocin) Confirm Administered Dose 20 unit .ROUTE .STK-MED ONE Stop: 01/20/20 06:15 Oxytocin (Pitocin) Confirm Administered Dose 10 unit .ROUTE .STK-MED ONE Stop: 01/20/20 06:16 Last Admin: 01/20/20 06:56 Dose: 10 unit Documented by: - Uterine Contractions Uterine Monitoring Mode: External [place] Contraction Frequency (min): irreg Contraction Duration (sec): 60-110 Contraction Intensity: Mild to Moderate Uterine Resting Tone: Soft - Monitoring Monitor Mode: Doppler/Auscultation Heart Rate (FHR) Variability: Moderate (6-25 bmp) Accelerations: Present, 15x15 Decelerations: Variable Strip Review: Category II - Vaginal Exam Dilation (cm): 5 Effacement (Percent): 90 Station: 0 Cervical Position: Anterior Sterile Vaginal Exam Performed By: Ophelia Aguilar Vaginal Exam Comment: "bulging bag" per Hung - Labor Progress (Free Text) Labor Progress: 01/20/2020 Patient still progressing very slow in labor SVE-5/90/0, caput felt FHTs category II with occasional variables and decreased variability Options discussed with patient and decision made to proceed with a primary c- section due to intolerance of labor and distress OR crew notified Patient verbalizes understanding and agrees with plan of care
[2020-01-20] MEDS ORDERED: hydrOXYzine HCL 100 MG/2 ML SDV IM PRN (09:16)
[2020-01-20] MEDS ORDERED: Ondansetron 4 MG/2 ML SDV IVPUSH PRN (09:16)
[2020-01-20] MEDS: Dextrose 5%-Lactated Ringers 1,000 ML IV SCH ×2 (09:45→16:35)
[2020-01-20] MEDS ORDERED: Naloxone 0.4 MG/ML SDV IVPUSH PRN (10:00)
[2020-01-20] MEDS ORDERED: diphenhydrAMINE 50 MG/ML SDV IVPUSH PRN (10:00)
[2020-01-20] MEDS: Acetaminophen 500 MG Tab PO SCH ×3 (10:10→22:38)
[2020-01-20] MEDS: Ibuprofen 600 MG Tab PO SCH ×2 (12:36→18:09)
[2020-01-20] MEDS: cefOXitin 2 GM in Sodium Chloride 0.9% 50 ML IV SCH ×2 (12:39→18:09)
[2020-01-20] MEDS ORDERED: Dextrose 5%-Lactated Ringers 1,000 ML IV SCH (20:39)
[2020-01-21] MEDS: cefOXitin 2 GM in Sodium Chloride 0.9% 50 ML IV SCH ×3 (00:17→11:59)
[2020-01-21] MEDS: Ibuprofen 600 MG Tab PO SCH ×4 (00:17→18:20)
[2020-01-21] MEDS: Acetaminophen 500 MG Tab PO SCH ×4 (05:28→22:15)
[2020-01-21] MEDS ORDERED: Witch Hazel Medicated Pads 100/Jar TOP PRN (08:06)
[2020-01-21] MEDS ORDERED: Lanolin 100% Cream 40 GM Tube TOP PRN (08:06)
[2020-01-21] MEDS: Bisacodyl 5 MG Tab PO SCH ×2 (10:01→21:00)
[2020-01-21] MEDS: Docusate Sodium 100 MG Cap PO SCH ×2 (10:02→21:00)
--- NOTE | 2020-01-21 11:20 | PN ---
DATE OF SERVICE: 01/21/2020 SUBJECTIVE: Gladys is postoperative day #1 following a section. She reports her pain is controlled. She has no other questions or concerns. OBJECTIVE: GENERAL: Galdys is a pleasant 29-year-old female, alert and orientated. VITAL SIGNS: TPR is 96.8, 75, 18, blood pressure 107/57. Oral intake 1100, output via Domínguez catheter is 4325. HEENT: Negative. NECK: Supple. HEART: Regular rate and rhythm. LUNGS: Clear. ABDOMEN: Abdominal binder is on. Incision looks good. EXTREMITIES: Without peripheral edema. ASSESSMENT: section. PLAN: 1. Regular diet. 2. Discontinue Domínguez catheter. 3. Colace 100 mg b.i.d. 4. Dulcolax 10 mg b.i.d. May stop after bowel movement. 5. May shower. 6. Saline lock IV. 7. We will evaluate p.r.n. or in a.m. Carlene Lehman PA-C /[id number]
[2020-01-21] MEDS: oxyCODONE 5 MG Tab PO PRN ×3 (14:33→22:23)
[2020-01-22] MEDS: Ibuprofen 600 MG Tab PO SCH ×2 (05:41→05:42)
[2020-01-22] MEDS: Acetaminophen 500 MG Tab PO SCH (05:42)
[2020-01-22 07:54] VITALS: BP 119/75; PULSE 94
[2020-01-22] MEDS ORDERED: Ibuprofen 200 MG Tab, 24 Tab Bulk Bottle PO PRN (08:00)
[2020-01-22] MEDS: oxyCODONE 5 MG Tab PO PRN (08:03)
[2020-01-22] MEDS: Docusate Sodium 100 MG Cap PO SCH (08:05)
[2020-01-22] MEDS ORDERED: Acetaminophen 325 MG Tab, 50 Tab Bulk Bottle PO PRN (08:06)
[2020-01-22] MEDS: Bisacodyl 5 MG Tab PO SCH (08:06)
[2020-01-22] MEDS ORDERED: Prenatal Multivitamin with Calcium/Folic Acid/Iron Tab PO SCH (09:00)
--- NOTE | 2020-01-22 12:52 | DISCH ---
ADMISSION DIAGNOSES: 1. Term . 2. Non-reassuring heart rate, rhythm affecting fetus. DISCHARGE DIAGNOSIS: section on 01/20/2020. Surgeon: Nazario Burton MD. Delivery of a viable female. HISTORY: Gladys Cross presented to the hospital on 01/19/2020, in labor. There was some heart deceleration, and after preoperative evaluation and discussion of possible risks and possible complications, she wished to proceed with surgical procedure. HOSPITAL COURSE: Gladys had her on 01/20/2020. She had no operative complications. On postoperative day #1, her epidural was already out. She started a regular diet. Domínguez was discontinued and bowel stimulation. On postoperative day #2, she did have a bowel movement. Oral intake adequate. Pain was controlled. Activity good and able to be discharged to home. PHYSICAL EXAMINATION: GENERAL: Gladys Cross is a pleasant 29-year-old female. Height is 5 feet 2 inches. Weight is 158 pounds. VITAL SIGNS: TPR is 96.9, 94, 16, blood pressure 119/75. HEENT: Negative. NECK: Supple. HEART: Regular rate and rhythm. LUNGS: Clear. ABDOMEN: Incision is glued, healing well. Abdominal binder is on. EXTREMITIES: Without peripheral edema. DISPOSITION: Discharged to home. CONDITION: Stable and improving. HOME MEDICATIONS: 1. Tylenol Extra Strength 1000 mg every 6 hours p.r.n. pain. 2. Motrin 600 mg every 6 hours scheduled #40, #1 refill. 3. Oxycodone 5 mg every 6 hours p.r.n. pain #28. 4. vitamins continue daily. FOLLOWUP APPOINTMENTS: 1. With Carlene Lehman, 01/28/2020, at [facility] at 11 a.m. 2. Ophelia Aguilar CNM, primary provider, on 03/02/2020 at 11:30 a.m. DIET: Usual diet as tolerated, drink 8 to 10 glasses of water. ACTIVITY: As tolerated. No lifting greater than 10 pounds for 6 weeks, but may lift baby and car seat. May shower. No tub bathing or swimming for 6 weeks. Keep operative site clean and dry. Wear abdominal binder for 2 weeks or longer if tolerated. Notify provider if any fever, increased pain, swelling, redness, drainage, nausea, vomiting. SPECIAL INSTRUCTION: Use incentive spirometer 10 times every hour while awake for 1 week. /[id number]
--- NOTE | 2020-01-24 11:44 | OR ---
DATE OF PROCEDURE: 01/20/2020 SURGEON: Nazario Burton MD PREOPERATIVE DIAGNOSIS: Term with decelerations. POSTOPERATIVE DIAGNOSIS: Term with decelerations. PROCEDURE: section ([id number]). ANESTHESIA: Epidural. CONSUMER BANKER: Ophelia Aguilar CNM INDICATIONS FOR PROCEDURE: This is a 29-year-old female undergoing an induction. With the Pitocin running, the patient developed some decelerations. The Pitocin was stopped and the decelerations stopped at this point, but the decision was made to proceed with a section. Potential risks of the procedure were reviewed with the patient including bleeding, infection, injury to mother and/or baby, and she wishes to proceed. DETAILS OF PROCEDURE: The patient was taken to the operating room. A Domínguez catheter was inserted. The pre-existing epidural catheter was then used for the anesthetic. The abdomen was prepped and draped. A transverse Pfannenstiel incision was made and carried down through the skin and subcutaneous tissue. The anterior rectus sheath and subrectus sheath flaps were then raised superiorly and inferiorly and the midline fascia divided and the peritoneal reflection of the bladder on the uterus was then divided and a low-transverse uterine incision was made. A viable female was delivered. The baby's presentation was occiput posterior like which may have been accounting for some of the poor progression of the labor. There was a thin meconium staining of the amniotic fluid. Otherwise, the female was delivered without difficulty and routine care given off the field per Ophelia Aguilar CNM. The patient was given intrauterine oxytocin and IV cefoxitin. Good uterine contractions were noted and the placenta and membranes were then delivered without difficulty. The uterus was then closed with 2 layers of 2-0 Vicryl stitch as well as the peritoneal reflection of the bladder on the uterus. The midline musculature and peritoneum were then approximated with a #2 Vicryl stitch as was the anterior rectus sheath and the subcutaneous tissue approximated with some 3-0 Vicryl stitch and the skin with a 4-0 Vicryl subcuticular stitch. Surgical glue was applied and the patient was taken to the recovery room in satisfactory condition. There were no evident complications. Per ACOG guidelines, an front desk assistant is indicated and in this case Ophelia Aguilar CNM provided the indicated assistance in this case. Nazario Burton MD /[id number]
== END 2020-01-22 09:40 | disposition home or self-care (01) | DRG 787 ==
LOC: JP.OBCHECK 21:20 → JP.OB 21:32 → OBSVTOIN 01-20 06:55 → JP.MS 01-20 07:30
PROVIDERS: ADMIT Surgery; ATTEND Surgery
PROC: 10D00Z1 Extraction of Products of Conception, Low, Open Approach (ICD-10-PCS; principal; 2020-01-20)
PROC: 10907ZC Drainage of Amniotic Fluid, Therapeutic from Products of Conception, Via Natural or Artificial Opening (ICD-10-PCS; 2020-01-20)
PROC: 3E0R3BZ Introduction of Anesthetic Agent into Spinal Canal, Percutaneous Approach (ICD-10-PCS; 2020-01-20)
PROC: 00HU33Z Insertion of Infusion Device into Spinal Canal, Percutaneous Approach (ICD-10-PCS; 2020-01-20)
DX: O76 Abnormality in fetal heart rate and rhythm complicating labor and delivery (principal); O36.0930 Maternal care for other rhesus isoimmunization, third trimester, not applicable or unspecified; O99.334 Smoking (tobacco) complicating childbirth; Z88.8 Allergy status to other drugs, medicaments and biological substances; F17.200 Nicotine dependence, unspecified, uncomplicated; Z20.828 Contact with and (suspected) exposure to other viral communicable diseases; Z37.0 Single live birth; Z3A.40 40 weeks gestation of pregnancy
CPT/HCPCS: 36415; 51702; 59409; 85025; 86850; 86900; 86901; 99211; A9270-GY; J0694; J2250; J2270; J2405; J2590; J3410; J3490; J7050; J7120; J7121